=== PATIENT | female | born 2000 | race Two or more races ===

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

== ENCOUNTER 2024-05-02 21:52 | Emergency (ER) | payer MEDICAID ==
[~2024-05-02] VITALS: Ht 157.5 cm; Wt 80.0 kg
[2024-05-03] MEDS: KETOROLAC TROMETH 30 MG/ML 1ML VIAL IM ONE (02:36)
[2024-05-03] MEDS ORDERED: CYCL-839 PO (03:13)
[2024-05-03] MEDS ORDERED: IBUP-1455 PO (03:13)
[2024-05-03] MEDS: HYDROcodone-ACET 5/325MG TAB PO ONE (04:39)
[2024-05-03 05:10] VITALS: BP 128/82; PULSE 85; RESP 18; TEMP 98.2; O2SAT 97
== END 2024-05-03 05:10 | disposition home or self-care (01) ==
LOC: EDUNIT# 21:52 → ER 21:52 → EDBD 21:52 → ER 05-03 05:10
DX: S60.011A Contusion of right thumb without damage to nail, initial encounter (principal); M54.6 Pain in thoracic spine; R07.89 Other chest pain; Z79.899 Other long term (current) drug therapy; V43.52XA Car driver injured in collision with other type car in traffic accident, initial encounter; Y93.I9 Activity, other involving external motion; Y92.89 Other specified places as the place of occurrence of the external cause; Y99.8 Other external cause status
CPT/HCPCS: 73140; 96372; 99283; J1885